=== PATIENT | male | born 1970 | race African-American/Black ===

== ENCOUNTER 2023-11-20 11:03 | Outpatient (CLI) | payer OTHER, SELFPAY ==
[2023-11-20 11:22] LABS: Basophils Percent Auto 0.4 % (0.2-1.2); Eosinophils Percent Auto 0.4 % (0-4.4); Hematocrit 47.7 % (42.0-52.0); Hemoglobin 14.5 g/dL (14.0-18.0); Immature Granulocyte Absolute 0.03 K/mm3 (0.00-0.031); Immature Granulocyte Percent A 0.4 % (0-0.5); Lymphocytes Absolute Auto 2.47 K/mm3 (0.9-3.2); Lymphocytes Percent Auto 32.1 % (18.3-44.2); Mean Corpuscular HGB Conc 30.4 g/dl (32-36); Mean Corpuscular Hemoglobin 20.3 pg (26-34); Mean Corpuscular Volume 66.9 fl (80-100); Mean Platelet Volume 9.5 fl (7.4-10.4); Monocytes Absolute Auto 0.7 K/mm3 (0.1-0.6); Monocytes Percent Auto 9.4 % (2.6-8.5); Neutrophils Absolute Auto 4.4 K/mm3 (1.3-6.7); Neutrophils Percent Auto 57.3 % (45.5-73.1); Platelet Count Result 234 k/mm3 (150-375); Red Blood Count 7.13 M/mm3 (4.6-6.20); Red Cell Distribution Width 19.8 % (11.5-14.5); White Blood Count 7.7 K/mm3 (4.5-10.0)
[2023-11-20 12:25] LABS: Alanine Aminotransferase 29 U/L (6-50); Albumin Level 4.5 g/dL (3.5-5.1); Alkaline Phosphatase 59 U/L (38-126); Anion Gap 7 mmol/L (8-16); Aspartate Amino Transferase 22 U/L (17-59); Bilirubin,Total 0.5 mg/dL (0.2-1.3); Blood Urea Nitrogen 13 mg/dL (9-20); Calcium 9.4 mg/dL (8.4-10.2); Carbon Dioxide 30 mmol/L (22-30); Chloride 104 mmol/L (98-107); Estimated Glomerular Filt Rate > 60; Glucose 102 mg/dL (65-110); Potassium 4.5 mmol/L (3.4-5.0); Sodium 141 mmol/L (137-145)
[2023-11-20 12:40] LABS: Iron 84 ug/dL (49-181)
[2023-11-20 12:53] LABS: Percent Iron Saturation 24 % (20-50)
[2023-11-23 13:09] LABS: Erythropoietin (EPO) 13.5 mIU/mL (2.6-18.5)
[2023-11-24 00:42] LABS: Hemoglobin 14.6 g/dL (13.2-17.1); MCH 20.1 pg (27.0-33.0); RDW 19.9 % (11.0-15.0); Red Blood Cell Count 7.25 Mill/uL (4.20-5.80)
== END 2023-11-20 11:04 | disposition home or self-care (01) ==
PROVIDERS: Visit Provider Internal Medicine Hematology & Oncology
DX: R71.8 Other abnormality of red blood cells (principal)
CPT/HCPCS: 36415; 80053; 82668; 82728; 83021; 83540; 83550; 85025

== ENCOUNTER 2023-11-23 10:41 | Outpatient (CLI) | payer OTHER, SELFPAY ==
--- NOTE | ~2023-11-23 | XR_ITS ---
[id number] 11/23/2023 11:11 Indication: Neck pain. Recent trauma. Procedure: 3 view cervical spine Comparison: No prior studies for comparison. Findings: Normal cervical alignment. Vertebral body heights are maintained. No significant disc narro wing. No acute fracture or traumatic malalignment. No prevertebral soft tissue abnormality. Odontoid process is normal. Lateral masses normally aligned. There is mild multilevel uncinate and facet hyper trophy. Impression: 1: No acute abnormality of the cervical spine. 2: Mild cervical spondylosis. Reviewed, dictated and finalized at location A. [employer] Impression: 1: No acute abnormality of the cervical spine. 2: Mild cervical spondylosis.
== END 2023-11-23 10:42 | disposition home or self-care (01) ==
LOC: ANHIMG 10:44
PROVIDERS: PCP Emergency Medicine; Visit Provider Emergency Medicine
DX: M47.892 Other spondylosis, cervical region (principal)
CPT/HCPCS: 72040